=== PATIENT | female | born 1985 | race Caucasian/White ===

== ENCOUNTER 2022-12-17 05:33 | Inpatient (IN) | payer BC ==
[2022-12-17] MEDS: Lactated Ringers 1,000 ML IV SCH ×3 (06:00→09:23)
[2022-12-17] MEDS ORDERED: Morphine PF 1 MG/ML Amp ONE (06:48)
[2022-12-17] MEDS ORDERED: fentaNYL 100 MCG/2 ML SDV ONE (06:48)
[2022-12-17] MEDS ORDERED: ceFAZolin 2 GM Vial ONE (06:56)
[2022-12-17] MEDS ORDERED: Citric Acid/Sodium Citrate Solution 30 ML Cup PO ONE (07:00)
[2022-12-17] MEDS ORDERED: Metoclopramide 10 MG/2 ML SDV IVPUSH ONE (07:00)
[2022-12-17] MEDS ORDERED: Oxytocin 10 Units/1 ML SDV ONE ×2 (07:54→08:13)
[2022-12-17] MEDS ORDERED: Lidocaine 1% 5 ML VIAL ONE (07:54)
[2022-12-17] MEDS ORDERED: ceFAZolin 2 GM in Sodium Chloride 0.9% 50 ML IV ONE (08:00)
[2022-12-17] MEDS ORDERED: Oxytocin/Lactated Ringers 10 UNIT/1,000 ML BAG IV SCH (08:00)
[2022-12-17] MEDS ORDERED: Lactated Ringers 1,000 ML ONE (08:02)
[2022-12-17] MEDS ORDERED: Ondansetron 4 MG/2 ML SDV ONE (08:11)
[2022-12-17] MEDS ORDERED: Ketorolac 30 MG/ML SDV ONE (08:20)
[2022-12-17] MEDS ORDERED: Phenylephrine 1% 10 MG/ML SDV ONE (08:20)
[2022-12-17] MEDS ORDERED: fentaNYL 100 MCG/2 ML SDV IVPUSH PRN (08:37)
[2022-12-17] MEDS ORDERED: diphenhydrAMINE 50 MG/ML SDV IVPUSH PRN ×2 (08:37→09:36)
[2022-12-17] MEDS ORDERED: Ondansetron 4 MG/2 ML SDV IVPUSH PRN (08:37)
[2022-12-17] MEDS ORDERED: Docusate Sodium 100 MG Cap PO PRN (09:36)
[2022-12-17] MEDS ORDERED: Dextrose 5%-Lactated Ringers 1,000 ML IV SCH (09:36)
[2022-12-17] MEDS ORDERED: ePHEDrine 50 MG/ML SDV IVPUSH PRN (09:36)
[2022-12-17] MEDS ORDERED: Acetaminophen/oxyCODONE 325-5 MG Tab PO PRN (09:36)
[2022-12-17] MEDS ORDERED: Naloxone 0.4 MG/ML SDV IVPUSH PRN (09:36)
[2022-12-17] MEDS ORDERED: Ondansetron 4 MG/2 ML SDV IV PRN (09:36)
[2022-12-17] MEDS: Ketorolac 30 MG/ML SDV IVPUSH SCH ×2 (14:48→20:38)
[2022-12-17] MEDS ORDERED: Lactated Ringers 500 ML IV ONE (16:19)
[2022-12-18] MEDS: Ketorolac 30 MG/ML SDV IVPUSH SCH (02:32)
[2022-12-18] MEDS: Acetaminophen/oxyCODONE 325-5 MG Tab PO PRN ×3 (06:58→20:09)
[2022-12-18] MEDS: Magnesium Hydroxide 400 MG/5 ML Susp 30 ML Cup PO PRN (11:33)
[2022-12-18] MEDS ORDERED: Polyethylene Glycol 3350 Powder 17 GM Packet PO ONE (16:22)
[2022-12-18] MEDS: Ibuprofen 600 MG Tab PO PRN (17:05)
[2022-12-19] MEDS: Magnesium Hydroxide 400 MG/5 ML Susp 30 ML Cup PO PRN (03:01)
[2022-12-19] MEDS: Ibuprofen 600 MG Tab PO PRN ×2 (03:01→12:04)
[2022-12-19] MEDS: Acetaminophen/oxyCODONE 325-5 MG Tab PO PRN ×3 (03:02→13:25)
[2022-12-19] MEDS ORDERED: Measles, Mumps & Rubella Vaccine 0.5 ML SDV SUBCUT ONE (08:00)
== END 2022-12-19 13:50 | disposition home or self-care (01) | DRG 540 ==
LOC: JD.OB 05:33
PROVIDERS: ADMIT Obstetrics & Gynecology; ATTEND Obstetrics & Gynecology
PROC: 10D00Z1 Extraction of Products of Conception, Low, Open Approach (ICD-10-PCS; principal; 2022-12-17)
DX: O34.211 Maternal care for low transverse scar from previous cesarean delivery (principal); Z37.0 Single live birth; Z3A.39 39 weeks gestation of pregnancy
CPT/HCPCS: 01961; 36415; 59025; 85025; 85027; 85461; 86592; 86850; 86870; 86900; 86901; 90707; A9270-GY; J0690; J1200; J1885; J2274; J2370; J2405; J2590; J2765; J2790; J3010; J3490; J7120; J7121